=== PATIENT | male | born 1950 | race African-American/Black ===

== ENCOUNTER 2024-12-07 10:24 | Observation (INO) ==
--- NOTE | 2024-12-07 11:00 | DR.EXTPAIN ---
HPI Time seen Time Seen by Provider: 12/07/24 10:59 Complaint/Symptoms Chief Complaint Doctor Comments: This patient stated that he fell on Tuesday, fell twice on Tuesday, and again on Tuesday. He states that his right ankle and leg gave way. Chief Complaint:: Patient states he fel Tuesday, twice on Tuesday, and again on Tuesday. He states his right ankle and leg gave away. He denies LOC. He complains of pain bilateral anteior rib cage around 5th-6th intercoastal area. He states pain increases with deep breaths. COVID-19 Coronavirus risk:travel/contact w/high risk person: No Has patient experienced Coronavirus symptoms: No Source History Provided: Patient Mode of arrival Mode of Arrival: Ambulatory Timing Onset of Chief Complaint: 12/03/24 PMH PMH Past Medical History: Yes Past Medical History: COPD, Diabetes and Hypertension Past Medical History Comment: pulmonary fibrosis Past Surgical History: Yes Surgical History: Ortho Surgery Family History History of Family Medical Conditions: Yes Family Medical History: Coronary Artery Disease and Hypertension Social History Does patient currently use any type of tobacco product: Yes Have you used tobacco products in the last 12 months: Yes Type of Tobacco Use: Cigarettes Does any household member use tobacco: Yes Alcohol Use: None Do you use any recreational Drugs:: No Lives With: Alone Lives Where: Home Travel Risk Coronavirus risk:travel/contact w/high risk person: No Has patient experienced Coronavirus symptoms: No Infectious screening In the last 2 months have you had wt loss of >10#?: NO Have you had fever, night sweats or hemotysis?: No Have you traveled outside the country in the last 6 months?: No Isolation: Standard ROS Review of Systems Constitutional: Other (Patient failed 3 times last week now complaining of right chest wall pain and unstable knee pain.) Eyes: No Symptoms Reported ENTM: No Symptoms Reported Respiratoy: No Symptoms Reported Cardiovascular: No Symptoms Reported Gastrointestinal/Abdominal: No Symptoms Reported Genitourinary: No Symptoms Reported Neurological: No Symptoms Reported Musculoskeletal: Chest wall (right) and Knee (bilateral knee pain) Integumentary: No Symptoms Reported Hematologic/Lymphatic: No Symptoms Reported Endocrine: No Symptoms Reported Psychiatric: No Symptoms Reported All Other Systems: Reviewed and Negative PE Vital Signs Vitals: Vital Signs Pulse Rate 100 Pulse Rate 106 Pulse Rate 87 Pulse Rate 89 Pulse Rate 94 Pulse Rate 81 Pulse Rate 80 Pulse Rate 76 Pulse Rate 80 Pulse Rate 78 Pulse Rate 80 Pulse Rate 84 Pulse Rate 79 Pulse Rate 95 Pulse Rate 99 Pulse Rate 90 Pulse Rate 80 Pulse Rate 84 Pulse Rate 85 Pulse Rate 85 Pulse Rate 82 Pulse Rate 86 Pulse Rate 90 Respiratory Rate 40 Respiratory Rate 40 Respiratory Rate 30 Respiratory Rate 29 Respiratory Rate 32 Respiratory Rate 27 Respiratory Rate 27 Respiratory Rate 25 Respiratory Rate 26 Respiratory Rate 26 Respiratory Rate 29 Respiratory Rate 27 Respiratory Rate 24 Respiratory Rate 24 Respiratory Rate 24 Respiratory Rate 24 Respiratory Rate 24 Respiratory Rate 26 Respiratory Rate 28 Blood Pressure 179/74 Blood Pressure 179/74 Blood Pressure 150/69 Blood Pressure 142/63 Blood Pressure 140/64 Blood Pressure 151/65 Blood Pressure 113/75 Blood Pressure 126/58 Blood Pressure 122/58 Blood Pressure 122/58 Blood Pressure 122/58 Blood Pressure 140/69 O2 Sat by Pulse Oximetry 100 O2 Sat by Pulse Oximetry 100 O2 Sat by Pulse Oximetry 100 O2 Sat by Pulse Oximetry 100 O2 Sat by Pulse Oximetry 100 O2 Sat by Pulse Oximetry 100 O2 Sat by Pulse Oximetry 100 MDM Differential Diagnosis Differential Diagnosis: Fracture (r ribs,bilateral knees) and Other (djd bilateral knees) COURSE Treatment Treatment: This patient may well be stable during ER visit. We did do evaluation of his chest and he had no acute fractures of the right anterior 7th and 8th and 9th ribs on the right side. There were multiple old fractures of ribs on the left side. The patient also had a urinalysis had too numerous to count WBCs and we treated for a urinary tract infection. He was given Rocephin 1 g orally in ER. The patient also had some renal insufficiency in which his BUN was 59 creatinine was 3.18 GFR was 25 the patient is blood sugar was 116. This patient was discussed with the ER call physician Dr. Saunders and we will be admitting for multiple rib fractures on the right, urinary tract infection, renal insufficiency and unstable gait. ROR Labs Reviewed Laboratory Results Reviewed?: Yes 12/07/24 10:34 12/07/24 10:34 Laboratory: WBC 13.9 X10^3/uL (3.6-10.0) H 12/07/24 10:34 RBC 3.42 X10^6/uL (4.7-6.0) L 12/07/24 10:34 Hgb 10.7 g/dL (13.5-18.0) L 12/07/24 10:34 Hct 31.7 % (42.0-54.0) L 12/07/24 10:34 MCV 92.7 fL (80.0-100.0) 12/07/24 10:34 MCH 31.3 pg (27.0-34.0) 12/07/24 10:34 MCHC 33.8 g/dL (33.0-35.0) 12/07/24 10:34 RDW 14.4 % (11.6-16.5) 12/07/24 10:34 Plt Count 345 X10^3/uL (150.0-450.0) 12/07/24 10:34 MPV 8.6 fL (7.4-11.0) 12/07/24 10:34 Neut % (Auto) 89.2 % (42.0-75.0) H 12/07/24 10:34 Lymph % (Auto) 4.1 % (21.0-51.0) L 12/07/24 10:34 [place] % (Auto) 5.6 % (0.0-13.0) 12/07/24 10:34 Eos % (Auto) 0.7 % (0.9-2.9) L 12/07/24 10:34 Baso % (Auto) 0.4 % (0.2-1.0) 12/07/24 10:34 Neut # (Auto) 12.4 x10^3/uL (2.2-4.8) H 12/07/24 10:34 Lymph # (Auto) 0.6 X10^3/uL (1.3-2.9) L 12/07/24 10:34 [place] # (Auto) 0.8 x10^3/uL (0.3-0.8) 12/07/24 10:34 Eos # (Auto) 0.1 x10^3/uL (0.0-0.2) 12/07/24 10:34 Baso # (Auto) 0.1 X10^3/uL (0.0-0.1) 12/07/24 10:34 Absolute Nucleated RBC 0.0 /100WBC 12/07/24 10:34 Sodium 130 mmol/L (136-145) L 12/07/24 10:34 Corrected Sodium 130 mmol/L (136-145) L 12/07/24 10:34 Potassium 3.8 mmol/L (3.5-5.1) 12/07/24 10:34 Chloride 97 mmol/L (98-107) L 12/07/24 10:34 Carbon Dioxide 21.5 mmol/L (21-32) 12/07/24 10:34 BUN 59 mg/dL (7-18) H 12/07/24 10:34 Creatinine 3.18 mg/dL (0.70-1.30) H 12/07/24 10:34 Est GFR (MDRD) Af Amer 25 (>60) L 12/07/24 10:34 Est GFR (MDRD) Non-Af 20 (>60) L 12/07/24 10:34 Glucose 115 mg/dL (65-99) H 12/07/24 10:34 Calcium 8.7 mg/dL (8.5-10.1) 12/07/24 10:34 Corrected Calcium 9.5 mg/dL (8.5-10.1) 12/07/24 10:34 Total Bilirubin 0.30 mg/dL (0.2-1.0) 12/07/24 10:34 AST 120 Units/L (15-37) H 12/07/24 10:34 ALT 80 Units/L (12-78) H 12/07/24 10:34 Alkaline Phosphatase 91 Units/L (46-116) 12/07/24 10:34 Total Protein 9.9 g/dL (6.4-8.2) H 12/07/24 10:34 Albumin 3.0 g/dL (3.4-5.0) L 12/07/24 10:34 Globulin 6.9 g/dL (2.5-4.5) H 12/07/24 10:34 Albumin/Globulin Ratio 0.4 Ratio (1.1-2.1) L 12/07/24 10:34 Specimen Type Clean catch urine 12/07/24 12:22 Urine Color Yellow (YELLOW) 12/07/24 12:22 Urine Appearance Slightly hazy (CLEAR) 12/07/24 12:22 Urine pH 6.0 (5.0 - 8.0) 12/07/24 12:22 Ur Specific [place] 1.020 (1.000-1.030) 12/07/24 12:22 Urine Protein 2+ (NEGATIVE) 12/07/24 12:22 Urine Glucose (UA) Negative (NEGATIVE) 12/07/24 12:22 Urine Ketones Negative (NEGATIVE) 12/07/24 12:22 Urine Blood 4+ (NEGATIVE) 12/07/24 12:22 Urine Nitrite Positive (NEGATIVE) 12/07/24 12:22 Urine Bilirubin Negative (NEGATIVE) 12/07/24 12:22 Urine Urobilinogen Normal (NORMAL) 12/07/24 12:22 Ur Leukocyte Esterase 1+ (NEGATIVE) 12/07/24 12:22 Urine RBC 0-2 /HPF (0-3) 12/07/24 12:22 Urine WBC Tntc /HPF (0-5) A 12/07/24 12:22 Ur Squamous Epith Cells Rare /HPF (NEGATIVE) 12/07/24 12:22 Urine Bacteria 3+ /HPF (NEGATIVE) 12/07/24 12:22 Coarse Granular Casts Few /HPF (NEGATIVE) 12/07/24 12:22 Ur Culture Indicated? Yes/culture set up 12/07/24 12:22 Opioid Opioid Risk Tool Age (Niraj box if 16-45): No History of Preadolescent Sexual Abuse: No Total: 0 Total Score Risk Category: Low Risk Copyright: Ivan DORMAN predicting aberrant behaviors Discharge Plan Diagnosis Discharge Problem: Chronic renal insufficiency, Multiple fractures of ribs of right side, Urinary tract infection in male, Unstable gait Discharge Plan Patient Disposition: 09 ADMITTED INPATIENT Condition: Stable Prescriptions: No Action metformin 500 mg tablet 500 mg PO BID tizanidine 2 mg tablet 2 mg PO Q8H PRN (Reason: muscle spasm) albuterol sulfate 2.5 mg /3 mL (0.083 %) solution for nebulization 2.5 mg inhalation Q4H PRN cetirizine 10 mg tablet 10 mg PO QDAY hydrocodone-acetaminophen 10-325 mg tablet 1 tab PO BID PRN aspirin 81 mg tablet,delayed release (DR/EC) 81 mg PO QDAY levothyroxine 50 mcg tablet 50 mcg PO QAM diclofenac sodium 75 mg tablet,delayed release (DR/EC) 75 mg PO QDAY hydroxyzine HCl 25 mg tablet 25 mg PO QDAY PRN (Reason: anxiety) pravastatin 20 mg tablet 20 mg PO QPM lisinopril 2.5 mg tablet 2.5 mg PO QDAY Health Concerns: Post Hospitalization: new medications and changes needed to prevent readmission or further decline. Pt educated and given instructions on all concerns. Plan of Treatment: Continue with present treatment and follow up plan. Pt is to keep follow up appointment as instructed and take medications as ordered. Orders to Discharge Patient Discharge Orders: Transfer (Routine); Ordered 12/07/24 Ordered By: Santos Diallo Follow ups/Referrals Follow ups/Referrals: [facility],None [Primary Care Provider] - 3 days Instructions Stand Alone Forms: Find Help Web Site, Post Hospital Follow Up Care Print Language: MONEGASQUE
--- NOTE | 2024-12-07 11:46 | CT ---
EXAM: CT chest without contrast HISTORY: Fall, trauma, bilateral rib pain TECHNIQUE: Axial noncontrast images with coronal and sagittal reformats. Dose reduction procedures were used with mA/kv adjusted for body size. This examination is limited due to the lack of intravenous contrast. The examination was performed in this manner at the sole direction of the ordering caregiver. Radiology was afforded no input into the method of performance of this examination. COMPARISON: 07/16/2021 FINDINGS: Examination of the mediastinum demonstrated no evidence for mediastinal mass, abnormal mediastinal or abnormal hilar adenopathy or significant aortic abnormality but only to the limitations of an unenhanced examination. No pleural effusions are identified. No acute traumatic thoracic spine abnormal ities identified. Old superior endplate compressions of T6 and T11 are once again visible. Clavicles, scapulae, and sternum are intact. Acute fractures of the right anterior 7th 8th and 9th ribs are identified. Multiple subacute or old healing left rib fractures are identified. No definite acute left rib fractures identified. Those portions of the upper abdominal organs visualized appeared within normal limits to the limitations of an unenhanced examination of the lung sands demonstrated diffuse bilateral predominantly upper lobe changes of paraseptal and centrilobular emphysema. Chronic appearing interstitial lung changes are present in the right upper lobe and bilateral lung bases. No masses, alveolar infiltrates, areas of consolidation, significant peribronchial thickening or bronchiectasis identified. No evidence for pulmonary contusion or pneumothorax. IMPRESSION: Acute fractures of the right anterior 7th 8th and 9th ribs Multiple old healing rib fractures on the left. No evidence for pulmonary contusion or pneumothorax Bilateral upper lobe changes of paraseptal and centrilobular emphysema Chronic interstitial lung changes right upper lobe bilateral lung bases THIS IS AN ELECTRONICALLY VERIFIED FINAL REPORT 12/07/2024 11:43 AM - Electronically signed by Bill Carter MD
[2024-12-07 11:55] LABS: MEAN PLATELET VOLUME 8.6 fL (7.4-11.0); RED CELL DISTRIBUTION WIDTH 14.4 % (11.6-16.5)
[2024-12-07 12:14] LABS: COR CA(FOR HYPOALB) 9.5 mg/dL (8.5-10.1); COR NA(FOR HYPERGLY) 130.0 mmol/L (136-145); CREATININE 3.18 mg/dL (0.70-1.30); eGFR NON BLACK RACES 20.0 (>60)
[2024-12-07 12:35] LABS: BLOOD/HEMOGLOBIN,URINE 4+ (NEGATIVE); LEUKOCYTE ESTERASE ,URINE 1+ (NEGATIVE); NITRITES,URINE POSITIVE (NEGATIVE)
[2024-12-07 12:37] LABS: APPEARANCE,URINE SLIGHTLY HAZY (CLEAR)
[2024-12-07 12:54] LABS: SQUAMOUS EPITHELIAL CELL,UR RARE /HPF (NEGATIVE)
[2024-12-07 12:55] LABS: COARSE GRANULAR CASTS,URINE FEW /HPF (NEGATIVE)
[2024-12-07] MEDS: ROCEPHIN VIAL 1 GRAM IVP ONE (13:43)
[2024-12-07] MEDS: NS 1,000 ML IV 1,000 ML IV ONE (15:09)
[2024-12-07] MEDS ORDERED: ZOFRAN INJ 4 MG VIAL IVP PRN (21:35)
[2024-12-07] MEDS ORDERED: DEMEROL INJ IVP PRN (21:35)
[2024-12-07] MEDS: ROCEPHIN VIAL 1 GRAM 1 G in NS 100 ML IV 100 ML IV SCH (22:22)
[2024-12-07] MEDS: NS 1,000 ML IV 1,000 ML IV SCH (23:13)
[2024-12-07 23:52] VITALS: BMI 27.8
[2024-12-08] MEDS: DEMEROL INJ ONE (04:02)
[2024-12-08] MEDS ORDERED: NovoLIN R (or HumuLIN R) SUBCUT PRN (05:17)
[2024-12-08 06:48] LABS: MEAN PLATELET VOLUME 8.7 fL (7.4-11.0); RED CELL DISTRIBUTION WIDTH 13.9 % (11.6-16.5)
[2024-12-08 06:53] LABS: COR CA(FOR HYPOALB) 9.8 mg/dL (8.5-10.1); CREATININE 1.90 mg/dL (0.70-1.30); eGFR NON BLACK RACES 37 (>60)
--- NOTE | 2024-12-08 07:45 | RAD ---
EXAM: Right knee three views HISTORY: Fell COMPARISON: 04/08/2022 br.br.br.br traumatic joint deformity. There is no evidence for synovial effusion. Similar linear calcification adjacent to the medial femoral condyle consistent with old trauma to the MCL. IMPRESSION: No change or acute right knee findings. THIS IS AN ELECTRONICALLY VERIFIED FINAL REPORT 12/08/2024 7:42 AM - Electronically signed by Paul Orellana MD
--- NOTE | 2024-12-08 07:47 | RAD ---
EXAM: Left knee three views HISTORY: Fell COMPARISON: None available FINDINGS: There is no evidence for fracture or dislocation or traumatic joint deformity. Bone density is normal. No abnormal calcification or joint effusion is demonstrated. Minimal degenerative narrowing suggested at the medial compartment. IMPRESSION: No acute findings or significant knee arthropathy, see above. THIS IS AN ELECTRONICALLY VERIFIED FINAL REPORT 12/08/2024 7:43 AM - Electronically signed by Paul Orellana MD
[2024-12-08] MEDS: NS 1,000 ML IV 1,000 ML ONE (07:52)
[2024-12-08] MEDS: ASPIRIN EC 81 MG PO SCH (08:14)
[2024-12-08] MEDS: ZESTRIL TAB 5 MG PO SCH (08:15)
[2024-12-08] MEDS: GLUCOPHAGE PO SCH (08:15)
[2024-12-08] MEDS ORDERED: LISINOPRIL 2.5 MG PO SCH (09:00)
[2024-12-08] MEDS: PROVENTIL NEB TX 0.083% 2.5MG/ 3ML IN PRN (09:00)
[2024-12-08] MEDS: GLUCOPHAGE ONE (09:09)
--- NOTE | 2024-12-08 12:15 | DR.H&P ---
H&P History & Physical for Day of: H&P Date: 12/08/24 Chief Complaint Chief Complaint: weakness, fall right rib pain History of Present Illness History of Present Illness: Patient is a 74-year-old male with past medical history of arthritis, hypertension, type 2 diabetes mellitus, hyperlipidemia presenting with generalized weakness and having multiple falls. Denies fevers, chills. Labs/imaging: WBC 13.9, hemoglobin 9.7, platelets 304, sodium 136, potassium 4.1, creatinine 3.181.90, glucose 99, UA consistent with infection, urine culture pending. CT of the chest was obtained that revealed fractures of the right 7, 8, 9 ribs. Bilateral knee x-rays were negative. Patient was admitted for acute cystitis, rib fractures, acute renal failure, dehydration. He was started on IV fluids normal saline at 125 mL/h. Monitor renal function, hold nephrotoxic agents. IV Rocephin for antibiotics. Will also order physical therapy for further evaluation. Restart home medications. Otherwise continue with current treatment plan. Continue closely monitor and follow-up labs/imaging. Time spent for clinical assessment, reviewing labs/imaging, physical exam, decision making and documentation greater than 45 mins. Past Medical History Past Medical History: COPD, Diabetes and Hypertension Past Surgical History Surgical History: Ortho Surgery Family History Family Medical History: Cancer, Coronary Artery Disease and Hypertension Social History Does patient currently use any type of tobacco product: Yes Have you used tobacco products in the last 12 months: Yes Type of Tobacco Use: Cigarettes Does any household member use tobacco: Yes Alcohol Use: None Drug Use: None Medications Home Medications: Home Medications Medication Instructions Recorded Confirmed Type albuterol sulfate 2.5 mg/3 mL 2.5 mg inhalation Q4H [place] N 12/07/24 12/07/24 History (0.083 %) solution for nebulization aspirin 81 mg tablet,delayed 81 mg PO QDAY 12/07/24 History release cetirizine 10 mg tablet 10 mg PO QDAY 12/07/2412/07 History diclofenac sodium 75 mg 75 mg PO QDAY 12/07/2412/07 History tablet,delayed release hydrocodone 10 mg-acetaminophen 1 tab PO BID PRN 12/0712/07/24 History 325 mg tablet hydroxyzine HCl 25 mg tablet 25 mg PO QDAY PRN anxiety 12/07/24 12/07/24 History levothyroxine 50 mcg tablet 50 mcg PO QAM 12/07/2404/23 History lisinopril 2.5 mg tablet 2.5 mg PO QDAY 12/07/2411/27 History metformin 500 mg tablet 500 mg PO BID 12/07/2412/07 History pravastatin 20 mg tablet 20 mg PO QPM 12/07/24 History tizanidine 2 mg tablet 2 mg PO Q8H PRN muscle spasm 12/07/24 12/07/24 History Allergies Allergies Allergy/AdvReac Type Severity Reaction Status Date / Time No Known Allergies Allergy Verified 12/07/24 10:35 Labs 12/08/24 05:58 12/08/24 05:58 Labs: Laboratory WBC 13.9 X10^3/uL (3.6-10.0) H 12/08/24 05:58 RBC 3.05 X10^6/uL (4.7-6.0) L 12/08/24 05:58 Hgb 9.7 g/dL (13.5-18.0) L 12/08/24 05:58 Hct 28.6 % (42.0-54.0) L 12/08/24 05:58 MCV 93.9 fL (80.0-100.0) 12/08/24 05:58 MCH 31.9 pg (27.0-34.0) 12/08/24 05:58 MCHC 34.0 g/dL (33.0-35.0) 12/08/24 05:58 RDW 13.9 % (11.6-16.5) 12/08/24 05:58 Plt Count 304 X10^3/uL (150.0-450.0) 12/08/24 05:58 MPV 8.7 fL (7.4-11.0) 12/08/24 05:58 Neut % (Auto) 80.6 % (42.0-75.0) H 12/08/24 05:58 Lymph % (Auto) 7.5 % (21.0-51.0) L 12/08/24 05:58 [place] % (Auto) 10.8 % (0.0-13.0) 12/08/24 05:58 Eos % (Auto) 0.5 % (0.9-2.9) L 12/08/24 05:58 Baso % (Auto) 0.6 % (0.2-1.0) 12/08/24 05:58 Neut # (Auto) 11.2 x10^3/uL (2.2-4.8) H 12/08/24 05:58 Lymph # (Auto) 1.0 X10^3/uL (1.3-2.9) L 12/08/24 05:58 [place] # (Auto) 1.5 x10^3/uL (0.3-0.8) H 12/08/24 05:58 Eos # (Auto) 0.1 x10^3/uL (0.0-0.2) 12/08/24 05:58 Baso # (Auto) 0.1 X10^3/uL (0.0-0.1) 12/08/24 05:58 Absolute Nucleated RBC 0.1 /100WBC 12/08/24 05:58 Sodium 136 mmol/L (136-145) 12/08/24 05:58 Corrected Sodium TNP 12/08/24 05:58 Potassium 4.1 mmol/L (3.5-5.1) 12/08/24 05:58 Chloride 103 mmol/L (98-107) 12/08/24 05:58 Carbon Dioxide 21.9 mmol/L (21-32) 12/08/24 05:58 BUN 40 mg/dL (7-18) H 12/08/24 05:58 Creatinine 1.90 mg/dL (0.70-1.30) H 12/08/24 05:58 Est GFR (MDRD) Af Amer 45 (>60) L 12/08/24 05:58 Est GFR (MDRD) Non-Af 37 (>60) L 12/08/24 05:58 Glucose 99 mg/dL (65-99) 12/08/24 05:58 POC Glucose (mg/dL) 103 mg/dL (65-99) H 12/08/24 10:39 Calcium 8.4 mg/dL (8.5-10.1) L 12/08/24 05:58 Corrected Calcium 9.8 mg/dL (8.5-10.1) 12/08/24 05:58 Magnesium 2.1 mg/dL (2.0-2.9) 12/08/24 05:58 Total Bilirubin 0.30 mg/dL (0.2-1.0) 12/08/24 05:58 AST 63 Units/L (15-37) H 12/08/24 05:58 ALT 54 Units/L (12-78) 12/08/24 05:58 Alkaline Phosphatase 78 Units/L (46-116) 12/08/24 05:58 Total Protein 8.5 g/dL (6.4-8.2) H 12/08/24 05:58 Albumin 2.2 g/dL (3.4-5.0) L 12/08/24 05:58 Globulin 6.3 g/dL (2.5-4.5) H 12/08/24 05:58 Albumin/Globulin Ratio 0.3 Ratio (1.1-2.1) L 12/08/24 05:58 Specimen Type Clean catch urine 12/07/24 12:22 Urine Color Yellow (YELLOW) 12/07/24 12:22 Urine Appearance Slightly hazy (CLEAR) 12/07/24 12:22 Urine pH 6.0 (5.0 - 8.0) 12/07/24 12:22 Ur Specific [place] 1.020 (1.000-1.030) 12/07/24 12:22 Urine Protein 2+ (NEGATIVE) 12/07/24 12:22 Urine Glucose (UA) Negative (NEGATIVE) 12/07/24 12:22 Urine Ketones Negative (NEGATIVE) 12/07/24 12:22 Urine Blood 4+ (NEGATIVE) 12/07/24 12:22 Urine Nitrite Positive (NEGATIVE) 12/07/24 12:22 Urine Bilirubin Negative (NEGATIVE) 12/07/24 12:22 Urine Urobilinogen Normal (NORMAL) 12/07/24 12:22 Ur Leukocyte Esterase 1+ (NEGATIVE) 12/07/24 12:22 Urine RBC 0-2 /HPF (0-3) 12/07/24 12:22 Urine WBC Tntc /HPF (0-5) A 12/07/24 12:22 Ur Squamous Epith Cells Rare /HPF (NEGATIVE) 12/07/24 12:22 Urine Bacteria 3+ /HPF (NEGATIVE) 12/07/24 12:22 Coarse Granular Casts Few /HPF (NEGATIVE) 12/07/24 12:22 Ur Culture Indicated? Yes/culture set up 12/07/24 12:22 Review of Systems Constitutional: Weakness Eyes: No Symptoms Reported ENT: No Symptoms Reported Respiratory: No Symptoms Reported Cardiovascular: No Symptoms Reported Gastrointestinal: No Symptoms Reported Genitourinary: Dysuria Musculoskeletal: Other (right rib pain) Skin: No Symptoms Reported Neurological: No Symptoms Reported Physical Exam Vital Signs: Vital Signs Temperature 99.7 F Pulse Rate [Left] 83 Pulse Rate 77 Respiratory Rate 20 Blood Pressure [Right Arm] 158/67 O2 Sat by Pulse Oximetry 97 O2 Sat by Pulse Oximetry 99 Oriented: Normal Eyes: Normal Ear: Normal Nose: Normal Throat: Normal Respiratory: Clear Throughout Cardiovascular: Normal : Normal Auscultation: Bowel Sounds: Normal Palpation: Normal Tenderness: Normal Skin: Decreased [place] Musculoskeletal: Normal Psychiatric: Normal Mood Description: Calm and Appropriate Affect: Normal Speech Pattern: Clear and Appropriate Assessment/Plan (1) Acute cystitis: Qualifiers: Hematuria presence: with hematuria Qualified Code(s): N30.01 - Acute cystitis with hematuria Status: Acute Plan: IV rocephin Follow up urine culture (2) Acute renal failure: Qualifiers: Acute renal failure type: unspecified Qualified Code(s): N17.9 - Acute kidney failure, unspecified Status: Acute Plan: monitor renal function. hold nephrotoxic agents. (3) Multiple fractures of ribs of right side: Qualifiers: Encounter type: initial encounter Fracture type: closed Qualified Code(s): S22.41XA - Multiple fractures of ribs, right side, initial encounter for closed fracture Status: Acute (4) Dehydration: Status: Acute Plan: IVF (5) Hypertension: Qualifiers: Hypertension type: primary hypertension Qualified Code(s): I10 - Essential (primary) hypertension Status: Acute (6) Hypothyroidism: Qualifiers: Hypothyroidism type: unspecified Qualified Code(s): E03.9 - Hypothyroidism, unspecified Status: Acute (7) Type 2 diabetes mellitus: Qualifiers: Diabetes mellitus terminal computer operator insulin use: unspecified terminal computer operator insulin use status Diabetes mellitus complication status: with other specified complication Qualified Code(s): E11.69 - Type 2 diabetes mellitus with other specified complication Status: Acute Review H&P Reviewed: Yes Patient was examined?: Yes
[2024-12-08] MEDS: NORCO 10/325 TAB PO PRN (16:29)
[2024-12-08] MEDS ORDERED: GLUCOPHAGE ONE (20:12)
[2024-12-08] MEDS: PRAVACHOL PO SCH (20:25)
[2024-12-08] MEDS: ZANAFLEX PO PRN (20:28)
[2024-12-08] MEDS: SNACK - Diabetic Appropriate PO SCH (20:30)
[2024-12-08] MEDS ORDERED: PRAVASTATIN 20 MG PO SCH (21:00)
[2024-12-09 06:43] LABS: MEAN PLATELET VOLUME 8.4 fL (7.4-11.0); RED CELL DISTRIBUTION WIDTH 14.3 % (11.6-16.5)
[2024-12-09 07:01] LABS: COR CA(FOR HYPOALB) 10.0 mg/dL (8.5-10.1); CREATININE 1.47 mg/dL (0.70-1.30); eGFR NON BLACK RACES 50 (>60)
[2024-12-09] MEDS: GLUCOPHAGE ONE (08:25)
--- NOTE | 2024-12-09 10:22 | PCM.PROG ---
Progress Note Progress Note for Day of Date of Exam: 12/09/24 Subjective Subjective: Patient is a 74-year-old male with past medical history of arthritis, hypertension, type 2 diabetes mellitus, hyperlipidemia admitted for acute cystitis, rib fractures, acute renal failure, dehydration. This morning he is resting in bed. No acute events overnight. Labs/imaging: WBC 10, hemoglobin 9.4, platelets 307, sodium 138, potassium 4.1, creatinine 1.47, glucose 103, Urine culture positive for Klebsiella pne. CT of the chest was obtained that revealed fractures of the right 7, 8, 9 ribs. He is currently receiving IV fluids normal saline at 125 mL/h. Monitor renal function, which is improving. Hold nephrotoxic agents. IV Rocephin for antibiotics. Order physical therapy for further evaluation. Home medications have been resumed. Otherwise continue with current treatment plan. Continue closely monitor and follow-up labs/imaging. Time spent for clinical assessment, reviewing labs/imaging, physical exam, decision making and documentation greater than 45 mins. Past Medical Family Social History Allergies: Allergies No Known Allergies Allergy (Verified 12/07/24 10:35) Review of Systems ROS changes noted: see HPI Vital Signs and I&O's Vital Signs: Vital Signs Temperature 97.5 F Temperature 98.0 F Pulse Rate [Left] 85 Pulse Rate [Left] 68 Pulse Rate 81 Respiratory Rate 20 Respiratory Rate 22 Blood Pressure [Left Arm] 133/60 Blood Pressure [Left Arm] 122/57 O2 Sat by Pulse Oximetry 94 O2 Sat by Pulse Oximetry 98 O2 Sat by Pulse Oximetry 98 Intake and Output: Intake & Output 12/06/24 12/07/24 12/08/24 12/09/24 23:59 23:59 23:59 23:59 Intake Total 220 / 220 4177 / 4177 Output Total 150 / 150 1999 / 1999 400 / 400 Balance 70 / 70 2177 / 2177 -400 / -400 Physical Exam Oriented: Normal Eyes: Normal Ear: Normal Nose: Normal Throat: Normal Respiratory: Normal Cardiovascular: Normal : Normal Auscultation: Bowel Sounds: Normal Tenderness: Normal Skin: Decreased [place]urg[place] Musculoskeletal: Normal Psychiatric: Normal Mood Description: Calm and Appropriate Affect: Normal Speech Pattern: Clear and Appropriate Laboratory and Diagnostics 12/09/24 05:44 12/09/24 05:44 Labs: 12/07/24 12:22 Urine,Clean Catch Urine Culture - Final Klebsiella Pneumoniae Laboratory WBC 10.0 X10^3/uL (3.6-10.0) 12/09/24 05:44 RBC 3.01 X10^6/uL (4.7-6.0) L 12/09/24 05:44 Hgb 9.4 g/dL (13.5-18.0) L 12/09/24 05:44 Hct 28.1 % (42.0-54.0) L 12/09/24 05:44 MCV 93.5 fL (80.0-100.0) 12/09/24 05:44 MCH 31.4 pg (27.0-34.0) 12/09/24 05:44 MCHC 33.5 g/dL (33.0-35.0) 12/09/24 05:44 RDW 14.3 % (11.6-16.5) 12/09/24 05:44 Plt Count 307 X10^3/uL (150.0-450.0) 12/09/24 05:44 MPV 8.4 fL (7.4-11.0) 12/09/24 05:44 Neut % (Auto) 69.1 % (42.0-75.0) 12/09/24 05:44 Lymph % (Auto) 15.2 % (21.0-51.0) L 12/09/24 05:44 [place] % (Auto) 12.8 % (0.0-13.0) 12/09/24 05:44 Eos % (Auto) 2.1 % (0.9-2.9) 12/09/24 05:44 Baso % (Auto) 0.8 % (0.2-1.0) 12/09/24 05:44 Neut # (Auto) 6.9 x10^3/uL (2.2-4.8) H 12/09/24 05:44 Lymph # (Auto) 1.5 X10^3/uL (1.3-2.9) 12/09/24 05:44 [place] # (Auto) 1.3 x10^3/uL (0.3-0.8) H 12/09/24 05:44 Eos # (Auto) 0.2 x10^3/uL (0.0-0.2) 12/09/24 05:44 Baso # (Auto) 0.1 X10^3/uL (0.0-0.1) 12/09/24 05:44 Absolute Nucleated RBC 0.1 /100WBC 12/09/24 05:44 Sodium 138 mmol/L (136-145) 12/09/24 05:44 Corrected Sodium TNP 12/09/24 05:44 Potassium 4.1 mmol/L (3.5-5.1) 12/09/24 05:44 Chloride 106 mmol/L (98-107) 12/09/24 05:44 Carbon Dioxide 25.0 mmol/L (21-32) 12/09/24 05:44 BUN 23 mg/dL (7-18) H 12/09/24 05:44 Creatinine 1.47 mg/dL (0.70-1.30) H 12/09/24 05:44 Est GFR (MDRD) Af Amer 60 (>60) 12/09/24 05:44 Est GFR (MDRD) Non-Af 50 (>60) L 12/09/24 05:44 Glucose 103 mg/dL (65-99) H 12/09/24 05:44 POC Glucose (mg/dL) 110 mg/dL (65-99) H 12/09/24 05:33 Calcium 8.3 mg/dL (8.5-10.1) L 12/09/24 05:44 Corrected Calcium 10.0 mg/dL (8.5-10.1) 12/09/24 05:44 Magnesium 2.1 mg/dL (2.0-2.9) 12/08/24 05:58 Total Bilirubin 0.20 mg/dL (0.2-1.0) 12/09/24 05:44 AST 36 Units/L (15-37) 12/09/24 05:44 ALT 44 Units/L (12-78) 12/09/24 05:44 Alkaline Phosphatase 70 Units/L (46-116) 12/09/24 05:44 Total Protein 7.8 g/dL (6.4-8.2) 12/09/24 05:44 Albumin 1.9 g/dL (3.4-5.0) L 12/09/24 05:44 Globulin 5.9 g/dL (2.5-4.5) H 12/09/24 05:44 Albumin/Globulin Ratio 0.3 Ratio (1.1-2.1) L 12/09/24 05:44 Specimen Type Clean catch urine 12/07/24 12:22 Urine Color Yellow (YELLOW) 12/07/24 12:22 Urine Appearance Slightly hazy (CLEAR) 12/07/24 12:22 Urine pH 6.0 (5.0 - 8.0) 12/07/24 12:22 Ur Specific [place] 1.020 (1.000-1.030) 12/07/24 12:22 Urine Protein 2+ (NEGATIVE) 12/07/24 12:22 Urine Glucose (UA) Negative (NEGATIVE) 12/07/24 12:22 Urine Ketones Negative (NEGATIVE) 12/07/24 12:22 Urine Blood 4+ (NEGATIVE) 12/07/24 12:22 Urine Nitrite Positive (NEGATIVE) 12/07/24 12:22 Urine Bilirubin Negative (NEGATIVE) 12/07/24 12:22 Urine Urobilinogen Normal (NORMAL) 12/07/24 12:22 Ur Leukocyte Esterase 1+ (NEGATIVE) 12/07/24 12:22 Urine RBC 0-2 /HPF (0-3) 12/07/24 12:22 Urine WBC Tntc /HPF (0-5) A 12/07/24 12:22 Ur Squamous Epith Cells Rare /HPF (NEGATIVE) 12/07/24 12:22 Urine Bacteria 3+ /HPF (NEGATIVE) 12/07/24 12:22 Coarse Granular Casts Few /HPF (NEGATIVE) 12/07/24 12:22 Ur Culture Indicated? Yes/culture set up 12/07/24 12:22 Plan (1) Acute cystitis: Status: Acute Qualifiers: Hematuria presence: with hematuria Qualified Code(s): N30.01 - Acute cystitis with hematuria Plan: IV rocephin Follow up urine culture (2) Acute renal failure: Status: Acute Qualifiers: Acute renal failure type: unspecified Qualified Code(s): N17.9 - Acute kidney failure, unspecified Plan: monitor renal function. hold nephrotoxic agents. (3) Multiple fractures of ribs of right side: Status: Acute Qualifiers: Encounter type: initial encounter Fracture type: closed Qualified Code(s): S22.41XA - Multiple fractures of ribs, right side, initial encounter for closed fracture (4) Dehydration: Status: Acute Plan: IVF (5) Hypertension: Status: Acute Qualifiers: Hypertension type: primary hypertension Qualified Code(s): I10 - Essential (primary) hypertension (6) Hypothyroidism: Status: Acute Qualifiers: Hypothyroidism type: unspecified Qualified Code(s): E03.9 - Hypothyroidism, unspecified (7) Type 2 diabetes mellitus: Status: Acute Qualifiers: Diabetes mellitus rat exterminator insulin use: unspecified rat exterminator insulin use status Diabetes mellitus complication status: with other specified complication Qualified Code(s): E11.69 - Type 2 diabetes mellitus with other specified complication
[2024-12-10 04:28] VITALS: RESP 20
[2024-12-10 06:11] LABS: MEAN PLATELET VOLUME 8.2 fL (7.4-11.0); RED CELL DISTRIBUTION WIDTH 14.5 % (11.6-16.5)
[2024-12-10 06:26] LABS: COR CA(FOR HYPOALB) 10.1 mg/dL (8.5-10.1); CREATININE 1.25 mg/dL (0.70-1.30); eGFR NON BLACK RACES > 60 (>60)
[2024-12-10] MEDS: GLUCOPHAGE ONE (06:55)
[2024-12-10] MEDS ORDERED: GLUCOPHAGE ONE (08:09)
[2024-12-10 12:06] VITALS: BP 132/63; PULSE 73; TEMP 98.5; O2SAT 97
== END 2024-12-10 17:25 | disposition home or self-care (01) ==
LOC: ER 10:24 → MED/SURG 10:24
PROVIDERS: ADMIT Family Medicine; ATTEND Family Medicine
DX: R53.1 Weakness; W18.39XA Other fall on same level, initial encounter; I10 Essential (primary) hypertension; E11.65 Type 2 diabetes mellitus with hyperglycemia; S22.41XA Multiple fractures of ribs, right side, initial encounter for closed fracture; B96.1 Klebsiella pneumoniae [K. pneumoniae] as the cause of diseases classified elsewhere; E87.1 Hypo-osmolality and hyponatremia; E83.51 Hypocalcemia; N30.01 Acute cystitis with hematuria; N17.8 Other acute kidney failure; R29.6 Repeated falls; M25.562 Pain in left knee; Y92.9 Unspecified place or not applicable; Z16.11 Resistance to penicillins; E86.0 Dehydration; E03.8 Other specified hypothyroidism